=== PATIENT | male | born 1995 | race Caucasian/White ===

== ENCOUNTER 2018-01-20 18:48 | Emergency (ER) | payer OTHER ==
[2018-01-20 19:07] VITALS: BP 155/88
--- NOTE | 2018-01-20 19:25 | UC ---
Skin Complaint HPI - HPI Summary HPI Summary: 22 yo male with right great toe pain and swelling he picked at some skin hear his nail no f/c hx of ingrown nails - History of Current Complaint Chief Complaint: UCLowerExtremity Time Seen by Provider: 01/20/18 19:15 Stated Complaint: RIGHT GREAT TOE COMPLAINT Hx Obtained From: Patient Onset/Duration: Gradual Onset, Lasting Days Skin Exposure Onset/Duration: Days Ago Timing: Constant Onset Severity: Mild Current Severity: Moderate Pain Intensity: 3 - moderate with wt bearing Pain Scale Used: 0-10 Numeric Location: Foot (Right) - great toe Character: Swelling, Redness, Painful - Allergy/Home Medications Allergies/Adverse Reactions: Allergies Allergy/AdvReac Type Severity Reaction Status Date / Time No Known Allergies Allergy Verified 01/20/18 19:04 Review of Systems Constitutional: Negative Skin: Negative Eyes: Negative ENT: Negative Respiratory: Negative Cardiovascular: Negative Gastrointestinal: Negative Genitourinary: Negative Motor: Negative Neurovascular: Negative Musculoskeletal: Negative Neurological: Negative Psychological: Negative Is Patient Immunocompromised?: No All Other Systems Reviewed And Are Negative: Yes PMH/Surg Hx/FS Hx/Imm Hx Previously Healthy: Yes - Surgical History Surgical History: Yes Surgery Procedure, Year, and Place: EAR TUBES B/L - Family History Known Family History: Positive: Hypertension Family History: no known cardio-vascular issues in family - Social History Alcohol Use: Occasionally Substance Use Type: None Smoking Status (MU): Never Smoked Tobacco Type: Cigars Have You Smoked in the Last Year: Yes Household Exposure Type: Cigarettes - Immunization History Vaccination Up to Date: Yes Physical Exam Triage Information Reviewed: Yes Appearance: Well-Appearing, No Pain Distress, Well-Nourished Vital Signs: Initial Vital Signs Temp 98.9 F 01/20/18 19:02 Pulse 121 01/20/18 19:02 Resp 16 01/20/18 19:02 BP 155/88 01/20/18 19:02 Pulse Ox 100 01/20/18 19:02 Vital Signs Reviewed: Yes Eyes: Positive: Conjunctiva Clear ENT: Positive: Hearing grossly normal. Negative: Nasal congestion, Nasal drainage, Trismus, Muffled voice, Hoarse voice Neck: Positive: Supple, Nontender, No Lymphadenopathy Respiratory: Positive: Lungs clear, Normal breath sounds, No respiratory distress, No accessory muscle use Cardiovascular: Positive: RRR, No Murmur. Negative: Tachycardia - not tachycardic during my exam Musculoskeletal: Positive: ROM Intact, No Edema Neurological: Positive: Alert Psychological Exam: Normal Skin Exam: Other - see image Course/Dx - Diagnoses Provider Diagnoses: right great toe infection Discharge - Discharge Plan Condition: Stable Disposition: HOME Prescriptions: Cephalexin CAP* [Keflex CAP*] 500 mg PO QID #28 cap Patient Education Materials: Cellulitis (ED) Referrals: Non Staff,Doctor [Primary Care Provider] - Additional Instructions: warm soaks tylenol or ibuprofen elevate elevate elevate recheck in three days if not improving see your vitamin manager if symptoms worsen or recur Your BP is elevated and should be rechecked by your provider in 2-8 weeks Images Feet (Multiple View): 1 - red/swollen/tender, no pus observed
== END 2018-01-20 19:35 | disposition home or self-care (01) ==
LOC: UCCORT 18:48
DX: L08.9 Local infection of the skin and subcutaneous tissue, unspecified (principal); F17.290 Nicotine dependence, other tobacco product, uncomplicated
CPT/HCPCS: 99212; G0463

== ENCOUNTER 2018-06-22 17:37 | Emergency (ER) | payer OTHER ==
[2018-06-22 18:44] VITALS: BP 129/76
--- NOTE | 2018-06-22 18:58 | UC ---
Ear Complaint HPI - HPI Summary HPI Summary: The patient is a 22-year-old male who presents here with right ear pressure. His symptoms started about 4 AM. He has markedly decreased hearing in his right ear. He had multiple middle ear infections as a child and required PETs. He has had a problem with cerumen impaction. He denies any recent URI symptoms or allergy type symptoms. - History of Current Complaint Chief Complaint: UCEar Stated Complaint: RIGHT EAR PRESSURE Time Seen by Provider: 06/22/18 18:30 Hx Obtained From: Patient Onset/Duration: Gradual Onset, Lasting Hours Severity Initially: Mild Severity Currently: Mild Pain Intensity: 2 Pain Scale Used: 0-10 Numeric Aggravating Factors: Nothing Associated Signs/Symptoms: Positive: Hearing Loss Related History: Prior ENT Surgery - Allergies/Home Medications Allergies/Adverse Reactions: Allergies Allergy/AdvReac Type Severity Reaction Status Date / Time No Known Allergies Allergy Verified 06/22/18 18:40 PMH/Surg Hx/FS Hx/Imm Hx Previously Healthy: Yes - Surgical History Surgical History: Yes Surgery Procedure, Year, and Place: EAR TUBES B/L - Family History Known Family History: Positive: Hypertension Family History: no known cardio-vascular issues in family - Social History Alcohol Use: Occasionally Substance Use Type: None Smoking Status (MU): Never Smoked Tobacco Type: Cigars Have You Smoked in the Last Year: Yes Household Exposure Type: Cigarettes - Immunization History Vaccination Up to Date: Yes Review of Systems Constitutional: Negative Skin: Negative Eyes: Negative ENT: Ear Ache Respiratory: Negative Cardiovascular: Negative Gastrointestinal: Negative Genitourinary: Negative Motor: Negative Neurovascular: Negative Musculoskeletal: Negative Neurological: Negative Psychological: Negative Is Patient Immunocompromised?: No All Other Systems Reviewed And Are Negative: Yes Physical Exam Triage Information Reviewed: Yes Appearance: Well-Appearing, No Pain Distress, Well-Nourished Vital Signs: Initial Vital Signs Temp 98.7 F 06/22/18 18:38 Pulse 97 06/22/18 18:38 Resp 18 06/22/18 18:38 BP 129/76 06/22/18 18:38 Pulse Ox 100 06/22/18 18:38 Vital Signs Reviewed: Yes Eyes: Positive: Conjunctiva Clear ENT: Positive: Uvula midline. Negative: Hearing grossly normal, Nasal congestion, Nasal drainage, TMs normal - Left TM normal, right red and bulging, Tonsillar swelling, Tonsillar exudate, Trismus, Muffled voice, Hoarse voice, Sinus tenderness Neck: Positive: Supple, Nontender Respiratory: Positive: Lungs clear, Normal breath sounds, No respiratory distress, No accessory muscle use Cardiovascular: Positive: RRR, No Murmur Musculoskeletal: Positive: ROM Intact, No Edema Neurological: Positive: Alert Psychological Exam: Normal Skin Exam: Normal Ear Complaint Course/Dx - Differential Dx/Diagnosis Provider Diagnoses: right otitis media Discharge - Sign-Out/Discharge Documenting (check all that apply): Patient Departure - Discharge Plan Condition: Stable Disposition: HOME Prescriptions: Amoxicillin PO (*) [Amoxicillin 875 MG (*)] 875 mg PO BID #20 tab Patient Education Materials: Ear Infection (ED) Referrals: No Primary Care Phys,NOPCP [Primary Care Provider] - Additional Instructions: recheck in 2 weeks if hearing not back to normal - Billing Disposition and Condition Condition: STABLE Disposition: Home
== END 2018-06-22 18:58 | disposition home or self-care (01) ==
LOC: UCCORT 17:37
DX: H66.91 Otitis media, unspecified, right ear (principal)
CPT/HCPCS: 99212; G0463

== ENCOUNTER 2019-04-12 20:00 | Emergency (ER) | payer OTHER ==
[2019-04-12 20:18] VITALS: BP 128/76
--- NOTE | 2019-04-12 20:35 | UC ---
Eye Complaint HPI - HPI Summary HPI Summary: 22-year-old male 23-year-old male comes in with a chief complaint of swelling of the left upper eyelid and redness of the eye and drainage. It's also started about 2 days ago. Movement of the eye makes the discomfort worse. Not moving the eye minimizes the discomfort. No known trauma he is not wearing contacts. No upper respiratory tract infection symptoms. - History of Current Complaint Chief Complaint: UCEye Stated Complaint: LEFT EYE ISSUE Time Seen by Provider: 04/12/19 20:11 Pain Intensity: 0 - Allergies/Home Medications Allergies/Adverse Reactions: Allergies Allergy/AdvReac Type Severity Reaction Status Date / Time No Known Allergies Allergy Verified 04/12/19 20:14 PMH/Surg Hx/FS Hx/Imm Hx Previously Healthy: Yes - Surgical History Surgical History: Yes Surgery Procedure, Year, and Place: EAR TUBES B/L - Family History Known Family History: Positive: Hypertension Family History: no known cardio-vascular issues in family - Social History Alcohol Use: Occasionally Substance Use Type: None Smoking Status (MU): Never Smoked Tobacco Type: Cigars Have You Smoked in the Last Year: Yes Household Exposure Type: Cigarettes - Immunization History Vaccination Up to Date: Yes Review of Systems All Other Systems Reviewed And Are Negative: Yes Constitutional: Positive: Negative Skin: Positive: Negative Eyes: Positive: Drainage, Eye Redness, Other - SEE HPI ENT: Positive: Negative Respiratory: Positive: Negative Cardiovascular: Positive: Negative Gastrointestinal: Positive: Negative Motor: Positive: Negative Neurovascular: Positive: Negative Musculoskeletal: Positive: Negative Neurological: Positive: Negative Psychological: Positive: Negative Is Patient Immunocompromised?: No Physical Exam Triage Information Reviewed: Yes Appearance: Well-Appearing, No Pain Distress, Well-Nourished Vital Signs: Initial Vital Signs Temp 98.1 F 04/12/19 20:14 Pulse 112 04/12/19 20:14 Resp 16 04/12/19 20:14 BP 128/76 04/12/19 20:14 Pulse Ox 100 04/12/19 20:14 Vital Signs Reviewed: Yes Eyes: Positive: Conjunctiva Inflamed - LEFT, Discharge - LEFT, Other: - LEFT UPPER LATERAL EYELID SWELLING Neck: Positive: Supple Respiratory: Positive: No respiratory distress Musculoskeletal Exam: Normal Musculoskeletal: Positive: Strength Intact, ROM Intact Neurological Exam: Normal Neurological: Positive: Alert, Muscle Tone Normal Psychological Exam: Normal Psychological: Positive: Normal Response To Family, Age Appropriate Behavior Skin Exam: Normal Eye Complaint Course/Dx - Differential Dx/Diagnosis Provider Diagnosis: Hordeolum of left upper eyelid Discharge - Sign-Out/Discharge Documenting (check all that apply): Patient Departure All imaging exams completed and their final reports reviewed: No Studies - Discharge Plan Condition: Stable Disposition: HOME Prescriptions: Tobramycin 0.3% OPHTH.CASEY* 1 drop LEFT EYE Q4H #1 btl Patient Education Materials: Amanda (ED) Referrals: [facility] [Provider Group] Additional Instructions: FOLLOW UP WITH OPHTHALMOLOGY IF NOT COMPLETELY IMPROVED. GET RECHECKED SOONER IF YOUR CONDITION WORSENS OR ANY QUESTIONS OR CONCERNS. - Billing Disposition and Condition Condition: STABLE Disposition: Home
== END 2019-04-12 20:40 | disposition home or self-care (01) ==
LOC: UCCORT 20:00
DX: H00.014 Hordeolum externum left upper eyelid (principal)
CPT/HCPCS: 99212; G0463

== ENCOUNTER 2019-10-27 19:17 | Emergency (ER) | payer OTHER ==
[2019-10-27 19:41] VITALS: BP 117/77
--- NOTE | 2019-10-27 20:03 | UC ---
Skin Complaint HPI - HPI Summary HPI Summary: 24 yo, stepped on a board today with sharon, which punctured sole of his left foot through a running shoe. Generally in good health, no hx of diabetes. Wound was cleansed soon after injury. - History of Current Complaint Chief Complaint: UCSkin Time Seen by Provider: 10/27/19 19:54 Stated Complaint: STEPPED ON NAILS Hx Obtained From: Patient Onset/Duration: Sudden Onset, Lasting Hours Skin Exposure Onset/Duration: Hours Ago Timing: Constant Onset Severity: Mild Current Severity: Mild Pain Intensity: 0 Aggravating Factor(s): Touch Alleviating Factor(s): Nothing - Allergy/Home Medications Allergies/Adverse Reactions: Allergies Allergy/AdvReac Type Severity Reaction Status Date / Time No Known Allergies Allergy Verified 10/27/19 19:37 Home Medications: Home Medications Ibuprofen TAB* [Motrin TAB* 800 MG] 400 mg PO ONCE 10/27/19 [History Confirmed 10/27/19] PMH/Surg Hx/FS Hx/Imm Hx Previously Healthy: Yes - overweight GI/ History: Other - renal stones 10/09/19 - Surgical History Surgical History: Yes Surgery Procedure, Year, and Place: EAR TUBES B/L - Family History Known Family History: Positive: Hypertension Family History: no known cardio-vascular issues in family - Social History Occupation: Employed Full-time Lives: With Family Alcohol Use: Occasionally Substance Use Type: None Smoking Status (MU): Never Smoked Tobacco Type: Cigars Have You Smoked in the Last Year: Yes Household Exposure Type: Cigarettes - Immunization History Vaccination Up to Date: Yes Review of Systems All Other Systems Reviewed And Are Negative: Yes Constitutional: Positive: Negative Skin: Positive: Other - puncture wounds left foot Eyes: Positive: Negative ENT: Positive: Negative Respiratory: Positive: Negative Cardiovascular: Positive: Negative Gastrointestinal: Positive: Negative Genitourinary: Positive: Other - still having some mild dysuria in the morning following dx of renal stones. Had 3mm stone in the right ureter on 10/09--did not follow up with urology Motor: Positive: Negative Neurovascular: Positive: Negative Musculoskeletal: Positive: Negative Neurological: Positive: Negative Psychological: Positive: Negative Is Patient Immunocompromised?: No Physical Exam Triage Information Reviewed: Yes Appearance: Well-Appearing, Pain Distress - mild Vital Signs: Initial Vital Signs Temp 98.0 F 10/27/19 19:37 Pulse 93 10/27/19 19:37 Resp 17 10/27/19 19:37 BP 117/77 10/27/19 19:37 Pulse Ox 99 10/27/19 19:37 ENT: Positive: Normal ENT inspection Respiratory: Positive: Lungs clear, Normal breath sounds Cardiovascular: Positive: RRR, No Murmur Musculoskeletal Exam: Normal Neurological Exam: Normal Psychological Exam: Normal Skin Exam: Other - sole of left forefoot with 4 approx 1 mm puncture wounds in the left foot. Minimally tender. Course/Dx - Course Course Of Treatment: Tetanus booster given. Discussed observation for signs of early infection and return if that occurs. - Differential Diagnoses - Skin Complaint Differential Diagnoses: Other - puncture wounds left foor - Diagnoses Provider Diagnosis: Puncture wound of left foot without foreign body Discharge ED - Sign-Out/Discharge Documenting (check all that apply): Patient Departure All imaging exams completed and their final reports reviewed: No Studies - Discharge Plan Condition: Stable Disposition: HOME Patient Education Materials: Puncture Wound (ED), Diphtheria/Pertussis/Tetanus Vaccine (By injection) Referrals: No Primary Care Phys,NOPCP [Primary Care Provider] - Additional Instructions: You have had a tetanus booster today--effective for 10 years. Soak your foot in warm water and epsom salts, and allow the wounds to air. If you have increasing pain or drainage from the wounds. return for re-evaluation. Use ibuprofen as needed for pain. I suggest that you have a follow up visit with a urologist or a primary care doctor regarding renal stones. - Billing Disposition and Condition Condition: STABLE Disposition: Home
[2019-10-27] MEDS ORDERED: Tetan/Diph/Pertus SYR(Tdap)* 0.5 ML SYR(BOOSTRIX) use SYR contains LATEX IM ONE (20:04)
== END 2019-10-27 20:34 | disposition home or self-care (01) ==
LOC: UCCORT 19:17
DX: S91.332A Puncture wound without foreign body, left foot, initial encounter (principal); Z23 Encounter for immunization; W45.0XXA Nail entering through skin, initial encounter; Y92.9 Unspecified place or not applicable
CPT/HCPCS: 90715; 96372; 99211; G0463